=== PATIENT | male | born 1950 | race Caucasian/White ===

== ENCOUNTER 2024-08-19 08:22 | Outpatient (CLI) | payer MEDICARE, SELFPAY ==
--- NOTE | ~2024-08-19 | XR_ITS ---
MODIFIED ESOPHAGRAM HISTORY: Dysphagia. TECHNIQUE: Modified barium esophagram was performed on 08/19/2024. I administered fluoroscopy and perf ormed the exam with speech pathologist. Patient was seated for lateral fluoroscopic imaging for blu stion of thin liquids, pudding, solids and quantified amounts, followed by thin liquids in uncontroll ed amounts. This was recorded on tape. A single fluoroscopic spot image was also recorded. The DAP fo r this procedure was 1.982 Gycm2. The amount of fluoroscopy time used during this procedure was 3.3 m inutes. FINDINGS: Oral stage: Adequate function. Pharyngeal stage: Laryngeal penetration which clears without aspiration. There are prominent bridging or nearly bridging anterior osteophytes at several levels visualized cervical spine suggestive of di ffuse idiopathic skeletal hyperostosis (DISH). At C3-C4 the anterior osteophytes appear to mechanical ly interfere with full epiglottic inversion. Cervical/esophageal stage: Adequate function. IMPRESSION: Pharyngeal dysphagia with mechanical interruption of focal hepatic inversion resulting fr om large anterior osteophytes at C3-C4. This appears to contribute to some laryngeal penetration whic h clears without aspiration. Please correlate with speech pathologist findings and specific feeding recommendations. Reviewed, dictated and finalized at location A. IMPRESSION: Pharyngeal dysphagia with mechanical interruption of focal hepatic inversion resulting from large anterior osteophytes at C3-C4. This appears to c ontribute to some laryngeal penetration which clears without aspiration. Pleas e correlate with speech pathologist findings and specific feeding recommendatio ns.
--- OUTSIDE RECORDS SUMMARY | 2024-08-19 08:45 | XMS_ITS | CONTINUITY OF CARE DOCUMENT ---
Author Name emely han Address Unknown Organization [facility] [address] Address [address] [place] [address] Phone [phone] Care Team Providers Care Halver Machine Operator Name Role Phone Nitesh MCKENZIE, Yanick Unavailable LEN MCKENZIE, DANIEL Unavailable [phone] LEN MCKENZIE, DANIEL Unavailable [phone] INSURANCE PROVIDERS Payer name Policy type / Coverage type [employer] red republican ID AARP MEDICARE ADVANTAGE HMO-POS HMO [id number]
--- OUTSIDE RECORDS SUMMARY | 2024-08-19 08:45 | XMS_ITS | Encounter Summary ---
Author Organization [facility] Address [address] [place] [address] Care Team Providers Care Buccaro Name Role Phone Nishant Lerma MD Primary Care Provider [phone] Encounter Details Date Type Department Care Team (Late st Contact Info) Description 03/15/2020 Lab Requisition [facility] [address] [place] [id number] [place] [address] Social History Tobacco Use Types Packs/Day Years Used Date Smoking Tobacco: Never Assessed Sex and Gender Information Value Date Recorded Sex Assigned at Not on file Gender Identity Not on file Sexual Orientation Not on file documented as of this encounter Plan of Treatment Not on file documented as of this encounter Procedures Procedure Name Priority Date/Time Associated Diagnosis Comments DERMATOPATHOLOGY Routine 03/14/2020 12:0 0 AM CDT documented in this encounter Results * DERMATOPATHOLOGY (03/14/2020 12:00 AM CDT) Case Report Dermatopathology Report Case: [id number] Authorizing Provider: Huseyin Mata MD Collected: 03/14/2020 12:00 AM Ordering Location: [facility] Received: 03/15/2020 12:17 PM Pathologist: Hubert Tavares MD Specimen: Skin, right lateral post lower neck 0 3:57 PM CDT DERMATOPATHOLOGY LABORATORY Final Diagnosis Specimen A. SKIN, right lateral post lower neck: BASAL CELL CARCINOMA, NODULAR TYPE (C44.41) NOT PRESENT AT SAMPLED MARGIN 0 3:57 PM CDT DERMATOPATHOLOGY LABORATORY Clinical History R/O BCC. Check margins. 0 3:57 PM CDT DERMATOPATHOLOGY LABORATORY Gross Description Specimen A: Received is one formalin filled container labeled with the patient's name and designated right lateral post lower neck. The specimen consists of a punch excision measuring [id number], bisected. Jar 0. 0 3:57 PM CDT DERMATOPATHOLOGY LABORATORY Microscopic Description Specimen A. SKIN, right lateral post lower neck: Within the dermis there are aggregates of basaloid cells with a high nuclear to cytoplasmic ratio and peripheral palisading. This lesion is not present at the sampled margin of the specimen. 0 3:57 PM CDT DERMATOPATHOLOGY LABORATORY Disclaimer An external and internal positive and negative controls are appropriate for the histochemical, immunohistochemical and immunofluorescence stain(s) in this case (if any), except where stated explicitly. The performance characteristics of the stain(s) cited in this report were developed and its performance characteristic determined by the Dermatopathology Laboratory at [facility], directed by Dr. Shanique Tavares. These tests need not be, and therefore are not, approved by the [place] Food and Drug Administration. The tests are used for clinical purposes. Billing Codes Specimen Charges Stain Charges 64569 1 0 3:57 PM CDT DERMATOPATHOLOGY LABORATORY Embedded Images 0 3:57 PM CDT DERMATOPATHOLOGY LABORATORY Pathology/Cytolog y TISSUE SPECIMEN FROM SKIN / Unknown 03/14/2020 03/15/2020 12:17 PM CDT Huseyin Mata MD LAB - PATHOLOGY/CYTO LOGY ORDERABLES DERMATOPATHOLOGY LABORATORY [facility] - Department of Dermatology [address], [address] [phone] documented in this encounter Visit Diagnoses Not on filedocumented in this encounter Care Teams Buccaro Relationship Specialty Start Date End Date Lerma, MD Nishant [address] [place] [address] PCP - General 03/14/08 documented as of this encounter
--- OUTSIDE RECORDS SUMMARY | 2024-08-19 08:45 | XMS_ITS | Data Portability ---
Author Organization [place] [facility], Main Office Address [address] [place] [address] Care Team Providers Care Director Fixed Income Name Role Phone ERVIN HUERTAS Primary Care Provider [phone] ERVIN HUERTAS Referring Provider [phone] KADEN BARRIENTOS Customer Services Coordinator VANDA PONCE Drafter Chief Design ELSY MARLOW Washing Machine Installer FERNANDO MELENDEZ Monkey Trainer Assessment Encounter Date Assessment Date Assessment LastModified by Organization Details LastModified Time 01/14/2024 01/14/2024 This note is dictated and transcribed by [employer]. Willower variances may occur. Despite proofreading, typographical errors may occur. Occasional wrong-word or '[id number]-[id number]' substitutions may have occurred due to the inherent limitations of voice recording. Read the chart carefully and recognize, using context, where substitutions have occurred. Not available 01/14/2024 09:49:02 02/04/2024 02/04/2024 07/03/2022: Urine alb <6.0 A1C 6.8 TSH/Lipids/CBC: WNL Gluc 116 11/27/2022: PSA 1.54 A1C 6.6 Gluc 118 LDL 87 05/20/2023: A1C 6.6 Gluc 138 09/30/2023: A1C 6.5 Gluc 123, Alb 4.5H 02/03/2024: A1C 6.7 Gluc 126 LDL 122 H/H 12.8/38.8 [email or web address] Not available 02/04/2024 10:12:26 04/07/2024 04/07/2024 This note is dictated and transcribed by [employer]. Willower variances may occur. Despite proofreading, typographical errors may occur. Occasional wrong-word or 'xqeph-l-apzi' substitutions may have occurred due to the inherent limitations of voice recording. Read the chart carefully and recognize, using context, where substitutions have occurred. Not available 04/13/2024 18:09:18 05/05/2024 05/05/2024 07/03/2022: Urine alb <6.0 A1C 6.8 TSH/Lipids/CBC: WNL Gluc 116 11/27/2022: PSA 1.54 A1C 6.6 Gluc 118 LDL 87 05/20/2023: A1C 6.6 Gluc 138 09/30/2023: A1C 6.5 Gluc 123, Alb 4.5H 02/03/2024: A1C 6.7 Gluc 126 LDL 122 H/H 12.8/38.8 04/20/2024: Gluc 110 A1C 7.4 [email or web address] Not available 05/05/2024 10:32:12 07/21/2024 07/21/2024 This note is dictated and transcribed by [employer]. Willower variances may occur. Despite proofreading, typographical errors may occur. Occasional wrong-word or 'jchej-p-niau' substitutions may have occurred due to the inherent limitations of voice recording. Read the chart carefully and recognize, using context, where substitutions have occurred. Not available 07/25/2024 09:02:42 Plan of Treatment Reminders Order Date Submit Date Provider Last Modified By Organization Details Last Modified Time Details Appointments Any 15 2024 09:00A Hubert guajardo MD Not available Not available Not available Establish ed Patient 15 2024 09:00A Hubert Melendez DPM Not available Not available Not available Lab PSA, total, serum or plasma 2023 024 [facility] (Lab), [address] [place], [address], 06/21/2024 12:53:15 glycohemo globin, total, blood [address] (Lab), [address] [place], [address], 05/05/2024 10:35:20 microalbu min, urine [address] (Lab), [address] [place], [address], 05/05/2024 10:35:21 lipid panel, serum [address] (Lab), [address] [place], [address], 05/05/2024 10:35:21 CBC w/ auto diff [address] (Lab), [address] [place], [address], 05/05/2024 10:35:21 CMP, serum or plasma [address] (Lab), [address] [place], [address], 05/05/2024 10:35:21 TSH, serum or plasma [address] (Lab), [address] [place], [address], 05/05/2024 10:35:22 glycohemo globin, total, blood [address] (Lab), [address] [place], [address], 08/09/2024 10:05:10 microalbu min, urine [address] (Lab), [address] [place], [address], 08/09/2024 10:05:11 lipid panel, serum [address] (Lab), [address] [place], [address], 08/09/2024 10:05:11 CBC w/ auto diff [address] (Lab), [address] [place], [address], 08/09/2024 10:05:11 CMP, serum or plasma [address] (Lab), [address] [place], [address], 08/09/2024 10:05:11 TSH, serum or plasma [address] (Lab), [address] [place], [address], 08/09/2024 10:05:11 Referral gastroent erologist referral - Please call patient to schedule. 2023 024 [email or web address] [facility], [address], [id number], [place], [address], 07/26/2024 09:32:20 cardiolog ist referral - Please call patient to schedule. 2023 024 [email or web address] Yanick Dowling, [address] [address], [place], [address], 07/26/2024 09:32:20 podiatris t referral 2023 024 [email or web address] Fernando Melendez DPM, [address] [facility], [address], [place], [address], 05/05/2024 17:34:35 gastroent erologist referral - Please call patient to schedule. 2023 024 [email or web address] Chiquita Barrientos MD, [address] [facility], [address], [place], [address], 03/09/2024 08:54:35 cardiolog ist referral 2023 024 [email or web address] Yanick Dowling, [address] [facility], [place], [address], 02/04/2024 16:12:46 podiatris t referral 2023 024 [email or web address] Fernando Melendez DPM, [address] [facility], [address], [place], [address], 02/04/2024 16:12:45 Procedures colonosco py screening (PROC) - Please call patient to schedule. 2023 024 [email or web address] [facility], [address], [address], [place], [address], 06/23/2024 12:03:21 colonosco py screening (PROC) - Please call patient to schedule. 2023 024 Yvrose Hawthorne MD, [address] [facility], [address], [place], [address], 05/05/2024 17:30:01 Surgeries None recorded. Imaging None recorded. Medication Orders None recorded. Patient TargetsNo targets recorded. Patient Instructions Encounter Date Encounter Id Patient Instructions Last Modified By Organization Details Last Modified Time 02/04/2024 [id number] diabetic eye exam* [email or web address] Not available 08/02/2024 08:45:38 05/05/2024 [id number] diabetic eye exam* [email or web address] Not available 05/05/2024 10:35:22 Reason for Referral Monkey Trainer Referral for Type 2 diabetes mellitus without complication Referring Physician: Ervin Huertas, Internal Medicine, Encounter Date: 02/04/2024 Student Counsellor Referral for Es sential hypertension Referring Physician: Ervin Huertas, Internal Medicine, Encounter Date: 02/04/2024 Customer Services Coordinator Referral for Dysphagia Please call patient to schedule. Referring Physician: Ervin Huertas Internal Medicine, Encounter Date: 02/04/2024 Monkey Trainer Referral for Type 2 diabetes mellitus without complication Referring Physician: Ervin Huertas Internal Medicine, Encounter Date: 05/05/2024 Student Counsellor Referral for Es sential hypertension Please call patient to schedule. Referring Physician: Ervin Huertas Internal Medicine, Encounter Date: 05/05/2024 Customer Services Coordinator Referral for Dysphagia Please call patient to schedule. Referring Physician: Ervin Huertas Internal Medicine, Encounter Date: 05/05/2024 Results Created Date Observation Date Name Description Value Unit Range Abnormal Flag Note LastModifiedBy Organization Detail LastModifiedTime 02/03/20 24 02/03/2024 CBC/C OMPLE TE BLD COUNT W/DIF F white blood cells 8.6 x10'3 /uL 4.2-10 .8 Not Available [facility] (Lab) [address] [place], [address], 02/03/2024 11:02:01 02/03/20 24 02/03/2024 CBC/C OMPLE TE BLD COUNT W/DIF F red blood cells 4.14 x10'6 /uL 4.10-5 .80 Not Available [facility] (Lab) [address] [place], [address], 02/03/2024 11:02:01 02/03/20 24 02/03/2024 CBC/C OMPLE TE BLD COUNT W/DIF F hemoglobin 12.8 g/dL 13.2-1 7.0 low Not Available [facility] (Lab) [address] [place], [address], 02/03/2024 11:02:01 02/03/20 24 02/03/2024 CBC/C OMPLE TE BLD COUNT W/DIF F hematocrit 38.8 % 39.3-5 0.0 low Not Available [facility] (Lab) [address] [place], [address], 02/03/2024 11:02:01 02/03/20 24 02/03/2024 CBC/C OMPLE TE BLD COUNT W/DIF F mean red cell volume 93.7 fL 80.0-9 7.0 Not Available [facility] (Lab) [address] [place], [address], 02/03/2024 11:02:01 02/03/20 24 02/03/2024 CBC/C OMPLE TE BLD COUNT W/DIF F mean red cell hemoglobin 30.9 pg 27.0-3 3.0 Not Available [facility] (Lab) [address] [place], [address], 02/03/2024 11:02:01 02/03/20 24 02/03/2024 CBC/C OMPLE TE BLD COUNT W/DIF F mean RBC HGB concentratio n 33.0 g/dL 31.0-3 6.0 Not Available [facility] (Lab) [address] [place], [address], 02/03/2024 11:02:01 02/03/20 24 02/03/2024 CBC/C OMPLE TE BLD COUNT W/DIF F red cell distribution width 13.2 % 11.8-1 5.5 Not Available [facility] (Lab) [address] [place], [address], 02/03/2024 11:02:01 02/03/20 24 02/03/2024 CBC/C OMPLE TE BLD COUNT W/DIF F platelets 269 x10'3 /uL 150-40 0 Not Available [facility] (Lab) [address] [place], [address], 02/03/2024 11:02:01 09/0402/03/2024 CBC/C OMPLE TE BLD COUNT W/DIF F mean platelet volume 11.1 fL 9.0-12 .4 Not Available [facility] (Lab) [address] [place], [address], 02/03/2024 11:02:01 02/03/20 24 02/03/2024 CBC/C OMPLE TE BLD COUNT W/DIF F neutrophils 57.6 % 39.0-7 2.0 Not Available [facility] (Lab) [address] [place], [address], 02/03/2024 11:02:01 02/03/2002/03/2024 CBC/C OMPLE TE BLD COUNT W/DIF F lymphocytes 33.2 % 16.0-4 7.0 Not Available [facility] (Lab) [address] [place], [address], 02/03/2024 11:02:01 02/03/20 24 02/03/2024 CBC/C OMPLE TE BLD COUNT W/DIF F monocytes 7.3 % 5.0-12 .0 Not Available [facility] (Lab) [address] [place], [address], 02/03/2024 11:02:01 02/03/20 24 02/03/2024 CBC/C OMPLE TE BLD COUNT W/DIF F eosinophils 1.0 % 1.0-7. 0 Not Available [facility] (Lab) [address] [place], [address], 02/03/2024 11:02:01 02/03/20 24 02/03/2024 CBC/C OMPLE TE BLD COUNT W/DIF F basophils 0.6 % 0.0-2. 0 Not Available [facility] (Lab) [address] [place], [address], 02/03/2024 11:02:01 02/03/20 24 02/03/2024 CBC/C OMPLE TE BLD COUNT W/DIF F immature granulocytes 0.3 % 0.00-0 .50 Not Available [facility] (Lab) [address] [place], [address], 02/03/2024 11:02:01 02/03/20 24 02/03/2024 CBC/C OMPLE TE BLD COUNT W/DIF F neutrophils, absolute count 4.96 x10'3 /uL 1.5-8. 0 Not Available [facility] (Lab) [address] [place], [address], 02/03/2024 11:02:01 02/03/20 24 02/03/2024 CBC/C OMPLE TE BLD COUNT W/DIF F lymphocytes, absolute count 2.86 x10'3 /uL 1.07-3 .43 Not Available [facility] (Lab) [address] [place], [address], 02/03/2024 11:02:01 02/03/20 24 02/03/2024 CBC/C OMPLE TE BLD COUNT W/DIF F monocytes, absolute count 0.63 x10'3 /uL 0.29-0 .99 Not Available [facility] (Lab) [address] [place], [address], 02/03/2024 11:02:01 02/03/20 24 02/03/2024 CBC/C OMPLE TE BLD COUNT W/DIF F eosinophils, absolute count 0.09 x10'3 /uL 0.02-0 .53 Not Available [facility] (Lab) [address] [place], [address], 02/03/2024 11:02:01 02/03/20 24 02/03/2024 CBC/C OMPLE TE BLD COUNT W/DIF F basophils, absolute count 0.05 x10'3 /uL 0.01-0 .08 Not Available [facility] (Lab) [address] [place], [address], 02/03/2024 11:02:01 02/03/20 24 02/03/2024 CBC/C OMPLE TE BLD COUNT W/DIF F immature granulocytes ,absolute 0.03 x10'3 /uL 0.00-0 .05 Not Available [facility] (Lab) [address] [place], [address], 02/03/2024 11:02:01 02/03/20 24 02/03/2024 CBC/C OMPLE TE BLD COUNT W/DIF F nucleated red blood cells 0.0 % -0 Not Available [facility] (Lab) [address] [place], [address], 02/03/2024 11:02:01 02/03/20 24 02/03/2024 CBC/C OMPLE TE BLD COUNT W/DIF F NRBC# 0.00 x10'3 /uL Not Available [facility] (Lab) [address] [place], [address], 02/03/2024 11:02:01 02/03/20 24 02/03/2024 LIPID PANEL cholesterol 198 mg/dL 140-19 9 NIH YAW NSUS RECOM MENDA TION FOR RADHA STERO L: ADULT CHILD LOW RISK: <200 <170 BORDE RLINE : <200- 239 ----- HIGH RISK: >240 >200 Not Available [facility] (Lab) [address] [place], [address], 02/03/2024 11:18:56 02/03/20 24 02/03/2024 LIPID PANEL triglyceride s 111 mg/dL 0-150 NIH YAW NSUS REPOR T RECOM MENDA TION FOR TRIGL YCERI SHRAVAN: ADULT CHILD LOW RISK: <150 ----- BODER LINE: 150-1 99 ----- HIGH RISK: >200 ----- Not Available [facility] (Lab) [address] [place], [address], 02/03/2024 11:18:56 02/03/20 24 02/03/2024 LIPID PANEL HDL cholesterol 54 mg/dL 40- Not Available [facility] (Lab) [address] [place], [address], 02/03/2024 11:18:56 02/03/20 24 02/03/2024 LIPID PANEL LDL cholesterol, calculated 122 mg/dL 0-130 NIH YAW NSUS REPOR T RECOM MENDA TIONS FOR LDL: ADULT CHILD LOW RISK <130 <110 (OPTI MAL LDL) <100 ----- BORDE RLINE : 130-1 59 ----- HIGH RISK: >160 >130 A TRIGL YCERI DE RESUL T >400 INVAL IDATE S THE CALCU LATIO N FOR LDL FRACT IONAT ION - THE LDL RESUL T WILL NOT BE REPOR ROCHELLE. Not Available [facility] (Lab) [address] [place], [address], 02/03/2024 11:18:56 02/03/20 24 02/03/2024 COMPR EHENS MANNY METAB OLIC PANEL sodium 136 mmol/ L 137-14 5 low Not Available [facility] (Lab) [address] [place], [address], 02/03/2024 11:19:02 02/03/20 24 02/03/2024 COMPR EHENS MANNY METAB OLIC PANEL potassium 4.7 mmol/ L 3.5-5. 1 Not Available [facility] (Lab) [address] [place], [address], 02/03/2024 11:19:02 02/03/20 24 02/03/2024 COMPR EHENS MANNY METAB OLIC PANEL chloride 104 mmol/ L 98-107 Not Available [facility] (Lab) [address] [place], [address], 02/03/2024 11:19:02 02/03/20 24 02/03/2024 COMPR EHENS MANNY METAB OLIC PANEL carbon dioxide 29 mmol/ L 22-30 Not Available [facility] (Lab) [address] [place], [address], 02/03/2024 11:19:02 02/03/20 24 02/03/2024 COMPR EHENS MANNY METAB OLIC PANEL anion gap 7.7 mmol/ L 14-22 low Not Available [facility] (Lab) [address] [place], [address], 02/03/2024 11:19:02 02/03/20 24 02/03/2024 COMPR EHENS MANNY METAB OLIC PANEL glucose 126 mg/dL 70-99 high Not Available [facility] (Lab) [address] [place], [address], 02/03/2024 11:19:02 02/03/20 24 02/03/2024 COMPR EHENS MANNY METAB OLIC PANEL BUN 17 mg/dL 8-19 Not Available [facility] (Lab) [address] [place], [address], 02/03/2024 11:19:02 02/03/20 24 02/03/2024 COMPR EHENS MANNY METAB OLIC PANEL creatinine 0.93 mg/dL 0.66-1 .25 Not Available [facility] (Lab) [address] [place], [address], 02/03/2024 11:19:02 02/03/20 24 02/03/2024 COMPR EHENS MANNY METAB OLIC PANEL GFR >60 Refer ence Range : [place] ge GFR Healt hy Adult : >60 mL/mi n/1.7 3 m2 Chron ic Kidne y Disea se: 15-60 mL/mi n/1.7 3 m2 Kidne y Failu re: <15/m L/min /1.73 m2 www.n iddk. nih.g ov The MDRD study equat ion has not been valid ated in child maged <18 years of age; pregn ant women ; the elder ly >85 years of age; or in some racia l or ethni c subgr oups, such as Hispa nics. Outsi de the valid ated samanta eters , estim ated GFR is less accur ate, requi ring clini tsewart judgm ent on a case- by-ca se basis . Clini stewart inter preta tion for other races and ages must be made by the clini jesus. The MDRD study equat ion has not been valid ated for the evalu ation of serum creat inine relat ed to nutri chuyita l statu s or medic ation usage . For perso ns <18 years of age, a pedia tric GFR calcu lator is avail able on the [facility] websi te: https ://sharon w.kid cheri.o rg/pr ofess ional s/kdo qi/gf r_cal culat or Not Available [facility] (Lab) [address] [place], [address], 02/03/2024 11:19:02 02/03/20 24 02/03/2024 COMPR EHENS MANNY METAB OLIC PANEL alkaline phosphatase 60 U/L 38-126 Not Available [facility] (Lab) [address] [place], [address], 02/03/2024 11:19:02 02/03/20 24 02/03/2024 COMPR EHENS MANNY METAB OLIC PANEL alanine aminotransfe rase 14 U/L 0-50 Not Available [facility] (Lab) [address] [place], [address], 02/03/2024 11:19:02 02/03/20 24 02/03/2024 COMPR EHENS MANNY METAB OLIC PANEL aspartate aminotransfe rase 30 U/L 15-46 Not Available [facility] (Lab) [address] [place], [address], 02/03/2024 11:19:02 02/03/20 24 02/03/2024 COMPR EHENS MANNY METAB OLIC PANEL bilirubin, total 0.60 mg/dL 0.20-1 .30 Not Available [facility] (Lab) [address] [place], [address], 02/03/2024 11:19:02 02/03/20 24 02/03/2024 COMPR EHENS MANNY METAB OLIC PANEL calcium 8.8 mg/dL 8.4-10 .2 Not Available [facility] (Lab) [address] [place], [address], 02/03/2024 11:19:02 02/03/20 24 02/03/2024 COMPR EHENS MANNY METAB OLIC PANEL total protein 6.7 g/dL 6.3-8. 2 Not Available [facility] (Lab) [address] [place], [address], 02/03/2024 11:19:02 02/03/20 24 02/03/2024 COMPR EHENS MANNY METAB OLIC PANEL albumin 4.0 g/dL 3.0-4. 4 Not Available [facility] (Lab) [address] [place], [address], 02/03/2024 11:19:02 02/03/20 24 02/03/2024 COMPR EHENS MANNY METAB OLIC PANEL globulin 2.7 g/dL 2.6-4. 2 Not Available [facility] (Lab) [address] [place], [address], 02/03/2024 11:19:02 02/03/20 24 02/03/2024 COMPR EHENS MANNY METAB OLIC PANEL A/G ratio 1.5 ratio 1.0-2. 0 Not Available [facility] (Lab) [address] [place], [address], 02/03/2024 11:19:02 02/03/20 24 02/03/2024 HEMOG LOBIN A1C HA1C 6.7 % 4.0-6. 0 high Diabe jayant Scree layton Crite kody: <5.7% Consi stent with absen ce of diabe jayant 5.7-6 .4% Consi stent with incre ased risk for diabe jayant (pred iabet es) >OR=6 .5% Consi stent with diabe jayant REFER ENCE: Diabe jayant Care 2016, 39(Chawla ppl.1 ):s13 -s22 Not Available [facility] (Lab) [address] [place], [address], 02/03/2024 11:47:19 02/03/20 24 02/03/2024 TSH W/REF ANTONY FT4 TSH with reflex free T4 2.010 uIU/m L 0.465- 4.680 Not Available [facility] (Lab) [address] [place], [address], 02/03/2024 12:10:37 02/03/20 24 02/03/2024 MICRO ALBUM IN RANDO M URINE microalbumin , urine 14.8 mg/L 0.0-16 .6 Not Available [facility] (Lab) [address] [place], [address], 02/03/2024 12:59:41 Result Notes None recorded. Problems Name Problem SNOMED Code Status Onset Date Resolution Date Notes Provider Name and Address Organization Details Recorded Time Diabetes mellitus without complicati on 893980736 Active Not Available [facility] 3 11:38:25 Hallux valgus 300765841 Active 2017 Not Available [facility] 3 11:38:25 Nocturia 663013588 Active Not Available [facility] 3 11:38:25 Impacted cerumen 77685184 Active Not Available [facility] 3 11:38:25 Tremor 62344452 Active Not Available [facility] 3 11:38:25 Wax in ear canal 092059349 Active Not Available [facility] 3 11:38:25 Paresthesi a of hand 617041712 Active Not Available [facility] 3 11:38:25 Type 2 diabetes mellitus without complicati on 354872515 Active 2019 Not Available [facility] 3 11:38:25 Macular retinal edema 75567518 Active 2016 Not Available [facility] 3 11:38:26 Osteoarthr itis 354347631 Active 2016 Not Available [facility] 3 11:38:26 Porokerato sis 391106103 Active 2021 Not Available [facility] 3 11:38:26 Dizziness 284521521 Active 2016 Not Available [facility] 3 11:38:26 Nausea 316293291 Active 2021 Not Available [facility] 3 11:38:26 Upper respirator y infection 29968663 Active Not Available [facility] 3 11:38:26 Tinea pedis 7034705 Active 2019 Not Available [facility] 3 11:38:26 Rhinitis 53939698 Active 2016 Not Available [facility] 3 11:38:26 Diabetes mellitus 52896441 Active Not Available [facility] 3 11:38:26 Onychomyco sis of toenails 723484220 Active 2022 Not Available [facility] 3 11:38:26 Conifer of toe 69525827 Active 2022 Not Available [facility] 3 11:38:26 Pain in toe 350233178 Active 2022 Not Available [facility] 3 11:38:25 Hyperlipid emia 45568150 Active 2022 Not Available [facility] 3 11:38:26 Dysphagia 76393278 Active 2022 Not Available [facility] 3 11:38:26 Tinnitus of right ear 4362683468120 Active 2022 Not Available [facility] 3 11:38:26 Essential hypertensi on 55656247 Active 2022 Not Available [facility] 3 11:38:26 Primary erectile dysfunctio n 990572385 Active 2022 Not Available [facility] 3 11:38:26 Dystrophia unguium 58370840 Active 2022 Not Available [facility] 3 11:38:26 Foot callus 420292059 Active 2022 Not Available [facility] 3 11:38:25 Ingrowing toenail 190808889 Active 2023 Fernando Melendez DPM [address], [address], [place], [address] , [facility] 4 10:24:54 COVID-19 299831156 Active 2023 Geri Garland MA [facility], [facility] 4 11:43:54 Anemia 727779112 Active 2023 Ervin patrick MD [address], [address], [place], [address] , [facility] 4 10:12:17 Skin lesion 06023662 Active 2023 Ervin patrick MD [address], [address], [place], [address] , [facility] 4 10:54:12 Nicotine dependence 10513566 Active 2023 Ervin patrick MD [address], [address], [place], [address] , [facility] 4 10:36:46 Problem Notes None recorded. Procedures Surgical History Date Name Laterality Status Provider Name and Address Organization Details Recorded Time 07/21/19 25 Nail Debridement completed Fernando Melendez DPM [address], [address], [place], [address], [facility] 07/25/2024 09:03:21 07/21/19 25 Callus Debridement, One completed Fernando Melendez DPM [address], [address], [place], [address], [facility] 07/25/2024 09:03:15 11/07/20 24 Nail Debridement completed Fernando Melendez DPM [address], [address], [place], [address], [facility] 04/13/2024 18:08:59 04/07/20 24 Callus Debridement, One completed Fernando Melendez DPM [address], [address], [place], [address], [facility] 04/13/2024 18:09:03 01/14/20 24 Nail Debridement completed Fernando Melendez DPM [address], [address], [place], [address], [facility] 01/14/2024 09:48:43 01/14/20 24 Callus Debridement, One completed Fernando Melendez DPM [address], [address], [place], [address], [facility] 01/14/2024 09:48:48 10/22/19 24 Medicare Wellness CPT Code, subsequent completed Adán King LPN [facility] 10/22/2023 08:18:22 10/22/19 24 Advanced Care Planning completed Adán King LPN [place] [facility] 10/22/2023 11:47:19 09/17/19 24 Nail Debridement completed Fernando Melendez DPM [address], [address], [place], [address], [facility] 09/17/2023 10:00:39 06/18/19 24 Nail Debridement completed Fernando Melendez DPM [address], [address], [place], [address], [facility] 06/18/2023 10:24:40 06/18/19 24 Callus Debridement, One completed Fernando Melendez DPM [address], [address], [place], [address], [facility] 06/18/2023 10:24:32 03/19/20 23 Nail Debridement completed Fernando Melendez DPM [address], [address], [place], [address], [facility] [employer] [facility] [employer] [facility] 03/19/2023 12:28:15 03/19/20 23 Callus Debridement, One completed Fernando Melendez DPM [address], [address], [place], [address], [facility] [employer] [facility] [employer] [facility] 03/19/2023 10:29:05 11/14/19 23 Nail Debridement completed Fernando Melendez DPM [address], [address], [place], [address], [facility] [employer] [facility] [employer] [facility] 11/13/2022 10:06:06 08/29/19 23 Nail Debridement completed Fernando Melendez DPM [address], [address], [place], [address], [employer] [facility] [employer] [facility] 08/28/2022 10:09:12 08/29/19 23 Callus Debridement 2-4 completed Fernando Melendez DPM [address], [address], [place], [address], [employer] [facility] [employer] [facility] 08/28/2022 10:08:59 removal of mole of skin by excision completed Not Available [facility] 07/30/2022 04:44:13 Back Surgery completed Not Available [facility] 07/30/2022 04:44:13 Knee Surgery completed Not Available [facility] 07/30/2022 04:44:13 Gallbladder Surgery completed Not Available [facility] 07/30/2022 04:44:13 Cancer Surgery completed Not Available [facility] 07/30/2022 04:44:13 excision of lesion of skin completed Not Available [facility] 07/30/2022 04:44:13 Imaging Results None recorded. Procedure Notes None recorded. Medical Equipment None Reported. Allergies No known drug allergies Medications Name Sig Start Date Stop Date Status Note LastModified by Organization Details LastModified Time metformin 500 mg tablet TAKE 1 TABLET BY MOUTH DAILY IN THE MORNING AND 2 TABLETS IN THE EVENING 2024 active Not Available Not Available Not Avai lable Zyrtec-D 5 mg-120 mg tablet,exte nded release 03/24 completed Not Available Not Available Not Available ammonium lactate 12 % lotion apply to both feet twice daily active Not Available Not Available No t Available sildenafil 50 mg tablet TAKE 1 TAB 20 MINS PRIOR TO SEX NEEDED TWICE A WEEK. GO TO ER IF ERECTION LASTS LONGER THAN 2 HRS active Not Available Not Available No t Available azithromyci n 250 mg tablet Take by oral route.2ta bs first day then 1 daily 12/22 completed Not Available Not Available Not Available pravastatin 40 mg tablet TAKE 1 TABLET BY MOUTH EVERY DAY 2024 active Not Available Not Available Not Avai lable acetazolami de ER 500 mg capsule,ext ended release TK 1 C PO BID active Not Available Not Available No t Available ofloxacin 0.3 % eye drops INSTILL 1 GTT INTO THE LEFT EYE QID FOR 7 DAYS active Not Available Not Available No t Available benzonatate 200 mg capsule 07/25 completed Not Available Not Available Not Available clarithromy speedy 500 mg tablet 07/25 completed Not Available Not Available Not Available griseofulvi n microsize 500 mg tablet TK 1 T PO BID WF FOR 8 WEEKS active Not Available Not Available No t Available ondansetron HCl 4 mg tablet TAKE 1 TABLET BY MOUTH TWICE DAILY NEEDED 12/04 completed Not Available Not Available Not Available peg-electro lyte solution 420 gram oral solution 06/30 completed Not Available Not Available Not Available Promethazin e VC-Codeine 6.25 mg-5 mg-10 mg/5 mL oral syrup 07/25 completed Not Available Not Available Not Available prednisolon e acetate 1 % eye drops,suspe nsion INSTILL 1 DROP INTO LEFT EYE BID. active Not Available Not Available No t Available hydrocortis one-acetic acid 1 %-2 % ear drops INSTILL 3 GTS INTO AFFECTED EARSS 2 TIMES A DAY active Not Available Not Available No t Available ciprofloxac in 0.3 % eye drops 12/16 completed Not Available Not Available Not Available pantoprazol e 40 mg tablet,nava yed release TAKE 1 TABLET BY MOUTH EVERY MORNING FOR 8 WEEKS active Not Available Not Available No t Available diclofenac 0.1 % eye drops 12/22 completed Not Available Not Available Not Available indomethaci n 50 mg capsule TAKE 1 CAPSULE BY MOUTH THREE TIMES A DAY NEEDED 2024 active Not Available Not Available Not Avai lable hydrocortis one 2.5 % topical cream JOESPH TO GROIN RASH QD active Not Available Not Available No t Available montelukast 10 mg tablet Take 1 tablet every day by oral route. active Not Available Not Available No t Available pravastatin 20 mg tablet Take 1 tablet every day by oral route for 90 days. 04/20 completed Not Available Not Available Not Available lisinopril 5 mg tablet TAKE 1 TABLET BY MOUTH EVERY DAY active Not Available Not Available No t Available methylpredn isolone 4 mg tablets in a dose pack 03/24 completed Not Available Not Available Not Available ketoconazol e 2 % topical cream APPLY 1 APPLICATI ON ONTO THE AFFECTED TOENAIL AREA(S) ON THE ONCE DAILY active Not Available Not Available No t Available fluticasone propionate 50 mcg/actuati on nasal spray,suspe nsion 2 sprays each nostril at supper 03/24 completed Not Available Not Available Not Available griseofulvi n ultramicros ize 250 mg tablet 07/25 completed Not Available Not Available Not Available OneTouch UltraSoft Lancets test sugars twice a day 06/18 completed Not Available Not Available Not Available metformin 02/15 completed Not Available Not Available Not Available Combigan 0.2 %-0.5 % eye drops INSTILL 1 DROP INTO LEFT EYE BID UTD active Not Available Not Available No t Available gatifloxaci n 0.5 % eye drops active Not Available Not Available Not Available OneTouch Verio test strips Take 1 strip twice a day by miscell. route. 06/18 completed Not Available Not Available Not Available Virtussin AC 10 mg-100 mg/5 mL oral liquid TK 10 ML PO TID 12/22 completed Not Available Not Available Not Available OneTouch Verio IQ Meter USE UTD 06/18 completed Not Available Not Available Not Available Fluvirin 8051-6087 45 mcg (15 mcg x 3)/0.5 mL intramuscul ar suspension INJECT 0.5 ML INTRAMUSC ULARLY DIRECTED. 12/22 completed Not Available Not Available Not Available Fluvirin 45 mcg (15 mcg x 3)/0.5 mL intramuscul ar suspension ADM 0.5ML IM UTD 12/22 completed Not Available Not Available Not Available Shingrix (PF) 50 mcg/0.5 mL intramuscul ar suspension, kit 01/12 completed Not Available Not Available Not Available Fluzone High-Dose (PF) 180 mcg/0.5 mL intramuscul ar syringe PHARMACIS T ADMINISTE RED IMMUNIZAT ION ADMINISTE RED AT TIME OF DISPENSIN G 04/20 completed Not Available Not Available Not Available Fluzone High-Dose Quad (PF) 240 mcg/0.7 mL IM syringe PHARMACY ADMINISTE RED 05/09 completed Not Available Not Available Not Available Paxlovid 300 mg (150 mg x 2)-100 mg tablets in a dose pack TAKE 3 TABLETS BY MOUTH TWICE A DAY DIRECTED ON PACKAGE INSTRUCTI ONS FOR 5 DAYS 02/03 completed Not Available Not Available Not Available Vitals Date Recorded Body height Heart rate Body mass index (BMI) Body weight Systolic blood pressure Diastolic blood pressure Provider Name and Address Organization Details Last Updated DateTime 4 177.8 cm 56 /min 29.4 kg/m2 87808.4 4 g 146 mm[Hg] 77 mm[Hg] Shanna Meier [place] [employer] 4 09:21:10 Date Recorded Body height Body mass index (BMI) Body weight Body temperature Heart rate Oxygen saturation Oxygen saturation in Arterial blood by Pulse oximetry Systolic blood pressure Diastolic blood pressure Provider Name and Address Organization Details Last Updated DateTime 4 177.8 cm 30.4 kg/m2 42525.5 8 g 97.9 [degF] 70 /min 98 % 98 % 126 mm[Hg] 74 mm[Hg] Joyce Fleming MA [place] [employer] 4 09:52:57 Date Recorded Body height Body mass index (BMI) Body weight Heart rate Respiratory rate Oxygen saturation Oxygen saturation in Arterial blood by Pulse oximetry Systolic blood pressure Diastolic blood pressure Provider Name and Address Organization Details Last Updated DateTime 4 177.8 cm 30.4 kg/m2 86273.5 8 g 67 /min 14 /min 99 % 99 % 132 mm[Hg] 76 mm[Hg] Che Richards [place] [employer] 4 09:51:08 Date Recorded Body height Body mass index (BMI) Body weight Body temperature Heart rate Respiratory rate Oxygen saturation Oxygen saturation in Arterial blood by Pulse oximetry Pain severity - 0-10 verbal numeric rating [Score] - Reported Systolic blood pressure Diastolic blood pressure Provider Name and Address Organization Details Last Updated DateTime 4 180.34 cm 30.8 kg/m2 329414. 91 g 98 [degF] 70 /min 16 /min 98 % 98 % 0 118 mm[Hg] 62 mm[Hg] Adán King LPN [facility] [employer] [facility] 4 09:52:06 Date Recorded Body height Body mass index (BMI) Body weight Respiratory rate Heart rate Body temperature Oxygen saturation Oxygen saturation in Arterial blood by Pulse oximetry Systolic blood pressure Diastolic blood pressure Provider Name and Address Organization Details Last Updated DateTime 5 180.34 cm 30.8 kg/m2 511847. 91 g 16 /min 60 /min 98 [degF] 96 % 96 % 131 mm[Hg] 63 mm[Hg] Natasha Osmani [place] [employer] [facility] [employer] [facility] 5 17:09:29 Social History Question Answer Notes LastModified by Organization Details LastModified Time Tobacco Smoking Status Never Smoker Not Available [facility] 07/30/2022 04:22:19 Do You Have An Advance Directive? No Information not available 10/22/2023 What Is Your Level Of Alcohol Consumption? Occasional Weekends Only MIGRATION.030 [id number] Information not available 07/30/2022 Do You Wear A Helmet When Biking? Yes MIGRATION.030 [id number] Information not available 07/30/2022 Are You Blind Or Do You Have Difficulty Seeing? No MIGRATION.030 [id number] Information not available 07/30/2022 What Is Your Level Of Caffeine Consumption? Occasional 1/2 Can Of Soda Per Day [email or web address] Information not available 10/22/2023 How Much Tobacco Do You Chew? 5+/day MIGRATION.030 885158 Information not available 07/30/2022 In The 14 Days Before Symptom Onset, Have You Had Close Contact With A Laboratory-confi rmed COVID-19 While That Case Was Ill? No MIGRATION.030 887239 Information not available 07/30/2022 In The 14 Days Before Symptom Onset, Have You Had Close Contact With A Person Who Is Under Investigation For COVID-19 While That Person Was Ill? No MIGRATION.030 822739 Information not available 07/30/2022 Are You Currently Employed? No Retired Information not available 10/22/2023 Are You Deaf Or Do You Have Serious Difficulty Hearing? No MIGRATION.0301 [id number] Information not available 07/30/2022 What Type Of Diet Are You Following? REGULAR MIGRATION.0301 [id number] Information not available 07/30/2022 Which Illicit Or Recreational Drugs Have You Used? None MIGRATION.0301 467353 Information not available 07/30/2022 Do You Or Have You Ever Used E-cigarettes Or Vape? Never Used Electronic Cigarettes MIGRATION.0301 [id number] Information not available 07/30/2022 What Is The Highest Grade Or Level Of School You Have Completed Or The Highest Degree You Have Received? 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 No MIGRATION.0301 534065 Information not available 07/30/2022 What Is The Fluoride Status Of Your Home? Fluoridated MIGRATION.0301 021709 Information not available 07/30/2022 Are There Any Guns Present In Your Home? No MIGRATION.0301 [id number] Information not available 07/30/2022 Do You Use Insect Repellent Routinely? Yes Information not available 10/22/2023 [facility] MIGRATION.0301 [id number] Information not available 07/30/2022 Presence Of Domestic Violence No [email or web address] Information not available 10/22/2023 Guns Present In The Home? No [email or web address] Information not available 10/22/2023 Are You Able To Care For Yourself? Yes [email or web address] Information not available 10/22/2023 Are You Blind Or Do Yo Have Difficulty Seeing? No [email or web address] Information not available 10/22/2023 Are You Deaf Or Do You Have Serious Difficulty Hearing? No [email or web address] Information not available 10/22/2023 General Stress Level? Low [email or web address] Information not available 10/22/2023 Live Alone Of With Others? With Others [email or web address] Information not available 10/22/2023 Do You Have A Medical Power Of Loading Machine Operator? No MIGRATION.0301 [id number] Information not available 07/30/2022 What Was The Date Of Your Most Recent Tobacco Screening? 10/22/2023 [email or web address] Information not available 10/22/2023 Have You Ever Been Counseled For Unhealthy Alcohol Use? No MIGRATION.0301 210418 Information not available 07/30/2022 Do You Have Any Pets? Yes MIGRATION.0301 078567 Information not available 07/30/2022 What Is Your Relationship Status? MIGRATION.0301 720443 Information not available 07/30/2022 Do You Use Your Seat Belt Or Car Seat Routinely? Yes MIGRATION.0301 387992 Information not available 07/30/2022 Do You Have Smoke And Carbon Monoxide Detectors In Your Home? Yes Dog, Cat [email or web address] Information not available 10/22/2023 Are You Passively Exposed To Smoke? No MIGRATION.0301 714114 Information not available 07/30/2022 Do You Or Have You Ever Used Smokeless Tobacco? Former Smokeless Tobacco User Tobacco Pouches QUIT 12/31/23 [email or web address] Information not available 02/04/2024 Are There Any Smokers In Your House? No MIGRATION.0301 672994 Information not available 07/30/2022 How Much Tobacco Do You Smoke? No MIGRATION.0301 [id number] Information not available 07/30/2022 What Types Of Sporting Activities Do You Participate In? Biking [email or web address] Information not available 10/22/2023 Do You Feel Stressed (tense, Restless, Nervous, Or Anxious, Or Unable To Sleep At Night)? [id number] MIGRATION.0301 163132 Information not available 07/30/2022 Do You Use Any Illicit Or Recreational Drugs? No MIGRATION.0301 875578 Information not available 07/30/2022 Has Tobacco Cessation Counseling Been Provided? No Information not available 10/22/2023 Have You Recently Traveled Abroad? No MIGRATION.0301 281639 Information not available 07/30/2022 Do You Have Any Dietary Restrictions? No MIGRATION.0301 131723 Information not available 07/30/2022 Do You Or Have You Ever Used Any Other Forms Of Tobacco Or Nicotine? Yes MIGRATION.0301 947610 Information not available 07/30/2022 How Many Days In The Past Year Have You Consumed 5 Or More Drinks? 0 [email or web address] Information not available 10/22/2023 Sex: Male Functional Status Question Answer Note LastModified by Organizat ion Details LastModified Time Do you have difficulty walking or climbing stairs? No MIGRATION.[id number] 6054 Information not available 07/30/2022 Do you have transportation difficulties? No MIGRATION.890483 6110 Information not available 07/30/2022 Are you able to walk? YESWOREST MIGRATION.947694 8823 Information not available 07/30/2022 Do you have difficulty doing errands alone? No MIGRATION.615880 8799 Information not available 07/30/2022 Are you able to care for yourself? Yes MIGRATION.649047 4036 Information not available 07/30/2022 Do you have difficulty dressing or bathing? No MIGRATION.039868 2373 Information not available 07/30/2022 What is your exercise level? Moderate walk/bik e MIGRATION.355706 1801 Information not available 07/30/2022 Mental Status Question Answer Note LastModified by Organizat ion Details LastModified Time Do you have difficulty concentrating, remembering or making decisions? No MIGRATION.[id number] 6 Information not available 07/30/2022 Family History Relationship Description Onset Age of this Age Resolved Age Notes LastModified by Organization Details LastModified Time Mother Malignant tumor of pancreas MIGRATION.196 [id number] Not available 07/30/2022 04:44:16 Medical History Condition Response NERVE DISEASE N BLINDNESS N RHEUMATIC FEVER N KIDNEY STONES N BLADDER PROBLEMS N MRSA N OTHER # 1 N POLIO N LUNG DISEASE/DISORDER N RADIATION / CHEMOTHERAPY N COPD N Other # 2 N BLOOD DISEASES N SURGERY N EAR OR HEARING PROBLEMS Y MUMPS N BOWEL PROBLEMS N DEPRESSION (INCLUDING POST ) N STROKE/TIA N ULCERS N BENIGN PROSTATIC HYPERPLASIA N MEASLES N MYOCARDIAL INFARCTION N OBESITY N GERD/NAUSEA N ANEURYSM N URINARY/BLADDER/KIDNEY PROBLEMS N CORONARY ARTERY DISEASE (CAD) N ADDICTION CONCERNS N ENDOMETRIOSIS N Impotence N USE OF BLOOD THINNERS N SKIN PROBLEMS N GASTROINTESTINAL DISORDER Y PERIPHERAL VASCULAR DISEASE N MUSCLE,JOINT OR BONE PROBLEMS N GASTROINTESTINAL BLEEDING N BLOOD CLOTS N ASTHMA N CATARACTS N ERECTILE DYSFUNCTION N VARICOSITIES N GI PROBLEMS N Low Testosterone N INFERTILITY N AIDS/HIV N CHEMOTHERAPY / RADIATION N LIVER DISEASE N MALE HYPOGONADISM N HYPERTENSION N ANXIETY DISORDER N BLOOD TRANSFUSION N ANEMIA/BLOOD DISORDER N CHRONIC EAR INFECTIONS N BRONCHITIS N TUBERCULOSIS N GLAUCOMA N FOOT PROBLEM N DIVERTICULITIS N SLEEP APNEA N CHICKENPOX N INFECTIOUS DISEASE N HEART ARRHYTHMIA N PROSTATE N INSOMNIA N HIGH CHOLESTEROL / HYPERLIPIDEMIA Y EYE PROBLEMS Y HYPERTHYROIDISM N NEUROLOGICAL PROBLEMS N CHRONIC PAIN SYNDROME N HYPOTHYROIDISM N CAROTID BLOCKAGE N CONSTIPATION N BACK / NECK PROBLEMS N BREAST PROBLEMS N DIALYSIS N ECZEMA N OSTEOPOROSIS N ARTHRITIS Y DIABETES, TYPE Y BAD TEETH N HEARTBURN / REFLUX N AUTISM SPECTRUM DISORDER (ASD) N HEPATITIS / LIVER DISEASE N GOUT N ALZHEIMER'S DISEASE N SLEEP DISORDER N Brain Problems N HERPES N DEMENTIA N HEADACHES/MIGRAINES N SEIZURES/EPILEPSY N VASCULAR DISEASE N PACEMAKER N Blood Disorder N DIZZINESS N HEART DISEASE/HEART PROBLEMS N KIDNEY DISEASE N MULTIPLE SCLEROSIS N CANCER: SPECIFY N ATRIAL FIBRILLATION N Gall Stones N PULMONARY EMBOLISM N AUTOIMMUNE DISEASE N Immunizations Vaccine Type Date Status Note Provider Nam e and Address Organization Details Recorded Time COVID-19, mRNA, LNP-S, PF, 30 mcg/0.3 mL dose, vicenta-sucrose 3 completed Nancy Duval RMA nury, [facility] 06/02/2024 15:40:39 Influenza, adjuvanted, quadrivalent, PF 3 completed Nancy Duval RMA nury, [facility] 06/02/2024 15:40:39 RSV, recombinant, protein subunit RSVpreF, adjuvant reconstituted, 0.5 mL, PF 3 completed Nancy Duval RMA nury, [facility] 06/02/2024 15:40:39 zoster recombinant 9 completed Nancy Duval RMA null, [facility] 06/02/2024 15:40:24 zoster recombinant 9 completed Nancy Duval RMA null, [facility] 06/02/2024 15:40:24 Influenza, adjuvanted, quadrivalent, PF 2 completed KELLEN Albright, [facility] 06/02/2024 15:40:24 COVID-19, mRNA, LNP-S, PF, 100 mcg/0.5mL dose or 50 mcg/0.25mL dose 1 [facility] 15:40:25 COVID-19, mRNA, LNP-S, PF, 100 mcg/0.5mL dose or 50 mcg/0.25mL dose 1 completed [facility] 15:40:25 COVID-19, mRNA, LNP-S, PF, vicenta-sucrose, 30 mcg/0.3 mL 3 completed [facility]24 15:40:39 Influenza, high-dose, trivalent, PF 4 completed [facility]24 15:40:39 Influenza, split virus, trivalent, preservative 0 completed [facility]24 15:40:39 COVID-19, mRNA, LNP-S, PF, vicenta-sucrose, 30 mcg/0.3 mL 4 completed NEREIDA AlbrightA null, [facility] 06/02/2024 15:41:01 COVID-19, mRNA, LNP-S, PF, 100 mcg/0.5mL dose or 50 mcg/0.25mL dose 2 completed NEREIDA AlbrightA null, [facility] 06/02/2024 15:40:25 SARS-COV-2 (COVID-19) vaccine, UNSPECIFIED 1 completed Nancy Duval RMA null, [facility] 06/02/2024 15:40:25 SARS-COV-2 (COVID-19) vaccine, UNSPECIFIED 1 completed Nancy Duval RMA null, [facility] 06/02/2024 15:40:25 Influenza, split virus, trivalent, preservative 0 completed Not Available [facility] 07/30/2022 05:07:13 Influenza, high-dose, trivalent, PF 9 completed Nancy Duval RMA null, [facility] 06/02/2024 15:40:25 zoster live 9 completed Nancy Duval RMA null, [facility] 06/02/2024 15:40:25 Influenza, high-dose, quadrivalent, PF 1 completed KELLEN Albright null, [facility] 06/02/2024 15:40:24 COVID-19, mRNA, LNP-S, PF, 100 mcg/0.5mL dose or 50 mcg/0.25mL dose 1 completed KELLEN Albright, [facility] 06/02/2024 15:40:25 influenza, unspecified formulation 7 completed Not Available [facility] 07/30/2022 05:07:13 Influenza, high-dose, trivalent, PF 8 completed Not Available [facility] 07/30/2022 05:07:13 Pneumococcal conjugate PCV 13 8 completed Nancy Duval RMA nury, [facility] 06/02/2024 15:40:25 Past Encounters Encounter ID Performer Location Encounter Start Date Encounter Closed Date Diagnosis/Indication Diagnosis SNOMED-CT Code Diagnosis ICD10 Code Diagnosis Note [id number] [facility] [address] [place] [address] 09/11/2020 00:00:00 09/19/2020 15:55:35 [id number] [facility] [address] [place] [address] 01/10/2021 00:00:00 01/10/2021 10:42:24 [id number] [facility] [address] [facility] [address] [place] [address] 01/24/2021 00:00:00 01/24/2021 14:47:38 [id number] [facility] [address] [place] [address] 06/20/2021 00:00:00 07/23/2021 10:23:00 [id number] [facility] [address] [place] [address] 11/07/2021 00:00:00 11/07/2021 10:49:38 [id number] [facility] Charisma Wilson [address] [place] [address] 01/27/2022 00:00:00 01/27/2022 16:17:42 [id number] [facility] [address] [facility] [address] [place] [address] 02/06/2022 00:00:00 02/06/2022 11:02:32 [id number] [facility] [address] [facility] [address] [place] [address] 07/10/2022 00:00:00 07/10/2022 11:18:07 [id number] Fernando Melendez DPM [facility] [place] [address] [facility], [address] [place] [address] 08/28/2022 09:34:50 08/28/2022 11:50:55 Diabetes mellitus 93662906 E11.9 Patient educated on neuropathy , diabetes, diabetic diet, and daily foot exams. Patient is to check feet daily for new wounds, blisters, redness to prevent infection and ulceration s to the feet. Patient will return to clinic in 3 months for diabetic foot workup. Onychomyco sis of toenails 034626091 B35.1 Nails 1 through 10 were debrided with sharp mechanical debridemen t without incident. Nails were debrided and greater than 50% length and thickness where needed.Rx ketoconazo le Conifer of toe 25053732 L84 bilateral 5th toesDebrid ed without incidentCo ntinue wide shoes.Offl oading to prevent wounds infectionF ollow-up in 3 months Pain in toe 487579275 M7 9.675 M79.674 5th toes bilaterall Scar above [id number] Fernando Melendez DPM [facility] [place] [address] [facility], [address] [place] [address] 11/13/2022 09:33:59 11/13/2022 10:11:38 Diabetes mellitus without complication 701434071 E11.9 Patient educated on neuropathy , diabetes, diabetic diet, and daily foot exams. Patient is to check feet daily for new wounds, blisters, redness to prevent infection and ulceration s to the feet. Patient will return to clinic in 3 months for diabetic foot workup. Onychomyco sis of toenails 875714132 B35.1 nails were debridedCo ntinue ketoconazo le as needed [id number] Ervin patrick MD [facility] Internal Med [facility] [address] [facility], [address] [place] [address] 12/04/2022 10:00:46 12/04/2022 10:33:56 Screening - NAD 421239889 Z13.9 C-scope: 04/09/18: Dr Barrientos, bx tubular adenoma, f/u in 5 years UTD on the yearly flu shotUTD PCV #13 06/17/17, UTD on #23 at [facility] 2019 as per his hxCan do TdaPUTD shingles vaccineUTD on COVID 19 vaccine 08/20/2020 , get boosters RTC in 4 monthswith labsER if worsehe did verbalize his understand ing of the above Type 2 tabitha betes mellitus without complication [id number] E11.9 On metformin 500mg one in am and 2 in pm More diet and exercise is neededDr Christina 01/24/2021 Get labsDr Vanda MCKENZIE 08/08/2021 Wet AMD, L eye, Eylea (afliberce pt) injection OS (L eye) done, rtc in 3 months Hyperlipidemia 35203369 E78.5 On pravastati n 40mg daily Get labsGoal is LDL less than 55Diet and exercise Dysphagia 15068314 R13.1 0 02/13/2020 : EGD, Antral gastritis Refer again to Dr Pretty protonix Tinnitus of right ear 48 35778409 108 H93.11 Seen by ENT 06/08/2020 Osteoarthritis 746973164 M19.90 Rarely uses the indomethac in and does well Essential hypertension 52876710 I10 On lisinopril 5mg dailyGet labsDoes well Primary er ectile dysfunction 707731313 N52.9 On Viagra 50 mg tablet 1 tablet 2 times a week as needed for 90 days [id number] Fernando Melendez DPM [facility] [facility] [address] [facility], [address] [place] [address] 03/19/2023 09:37:14 03/20/2023 11:28:22 Type 2 diabetes mellitus without complication [id number] E11.9 Patient educated on neuropathy , diabetes, diabetic diet, and daily foot exams. Patient is to check feet daily for new wounds, blisters, redness to prevent infection and ulceration s to the feet. Patient will return to clinic in 3 months for diabetic foot workup. Dystrophia unguium 86530 009 L60.3 Nails 1 through 10 were debrided with sharp mechanical debridemen t without incident. Nails were debrided and greater than 50% length and thickness where needed. Foot callus [id number] L8 4 medial 1st metatarsop halangeal jointDebri ded without incidentDi scussed options in detailPati ent elects to continue with conservati ve offloading Monitor for wounds daily if continues to be problemati c may require surgical interventi onRecommen d wide soft toe box style shoe gear [id number] Ervin patrick MD [facility] [address] [facility], [address] [place] [address] 05/21/2023 09:45:46 05/21/2023 10:14:36 Screening - NAD [id number] Z13.9 C-scope: 04/09/18: Dr Barrientos, bx tubular adenoma, f/u in 5 years UTD on the yearly flu shotUTD PCV #13 06/17/17, UTD on #23 at [facility] 2019 as per his hxCan do TdaPUTD shingles vaccineUTD on COVID 19 vaccine 08/20/2020 , get boostersCa n do RSV vaccine RTC in 4 monthswith labsER if worsehe did verbalize his understand ing of the above Type 2 tabitha betes mellitus without complication [id number] E11.9 On metformin 500mg one in am and 2 in pm More diet and exercise is neededDr Christina 01/24/2021 Get labsDr Vanda MCKENZIE 08/08/2021 Wet AMD, L eye, Eylea (afliberce pt) injection OS (L eye) done, rtc in 3 months Hyperlipidemia 16727591 E78.5 On pravastati n 40mg daily Get labsGoal is LDL less than 55Diet and exercise Dysphagia 49654808 R13.1 0 02/13/2020 : EGD, Antral gastritis0 02/04/2023: EGD: Dr Barrientos On protonix Tinnitus of right ear 48 33956851 108 H93.11 Seen by ENT 06/08/2020 Osteoarthritis 676180041 M19.90 Rarely uses the indomethac in and does well Essential hypertension 38164675 I10 On lisinopril 5mg dailyGet labsDoes well Primary er ectile dysfunction 844791979 N52.9 On Viagra 50 mg tablet 1 tablet 2 times a week as needed for 90 days [id number] Fernando Melendez DPM [facility] [place] [address], [address] [place] [address] 06/18/2023 09:37:53 06/29/2023 09:30:43 Type 2 diabetes mellitus without complication 730851525 E11.9 Patient educated on neuropathy , diabetes, diabetic diet, and daily foot exams. Patient is to check feet daily for new wounds, blisters, redness to prevent infection and ulceration s to the feet. Patient will return to clinic in 3 months for diabetic foot workup. Ingrowing toenail 499540 009 L60.0 right lateral cornercut out without incident noninfecte dwill continue to monitor continues to be problemati c will perform partial matrix Dystrophia unguium 21216 009 L60.3 Nails 1 through 10 were debrided with sharp mechanical debridemen t without incident. Nails were debrided and greater than 50% length and thickness where needed. Foot callus 225340131 L8 4 medial 1st metatarsop halangeal jointDebri ded without incidentDi scussed options in detailPati ent elects to continue with conservati ve offloading Monitor for wounds daily if continues to be problemati c may require surgical interventi onRecommen d wide soft toe box style shoe gear [id number] Fernando Melendez DPM [facility] [place] [address] [facility], [address] [place] [address] 09/17/2023 09:15:42 09/17/2023 11:16:48 Diabetes mellitus without complication [id number] E11.9 Patient educated on neuropathy , diabetes, diabetic diet, and daily foot exams. Patient is to check feet daily for new wounds, blisters, redness to prevent infection and ulceration s to the feet. Patient will return to clinic in 4 months for diabetic foot workup. Dystrophia unguium 12391 009 L60.3 Nails 1 through 10 were debrided with sharp mechanical debridemen t without incident. Nails were debrided and greater than 50% length and thickness where needed. Foot callus [id number] L8 4 medial 1st metatarsop halangeal jointrecom mend use of pumice stoneDiscu ssed options in detailPati ent elects to continue with conservati ve offloading Monitor for wounds daily if continues to be problemati c may require surgical interventi onRecommen d wide soft toe box style shoe gear [id number] Ervin patrick MD [facility] [address] [facility], [address] [place] [address] 10/22/2023 09:38:05 10/22/2023 10:17:16 Screening - NAD [id number] Z13.9 C-scope: 04/09/18: Dr Barrientos, bx tubular adenoma, f/u in 5 years UTD on yearly flu shotUTD PCV #13 06/17/17, [facility] as per his hxCan do TdaPShingl es vaccine 06/24/18 09/01/18UTD on COVID 19 vaccine 07/19/20 , 08/20/2020 , get boostersRS V vaccine 04/05/23 RTC in 4 monthswith labsER if worsehe did verbalize his understand ing of the above Type 2 tabitha betes mellitus without complication 834549410 E11.9 On metformin 500mg one in am and 2 in pm More diet and exercise is neededDr Garycher 01/24/2021 Get labsDr Vanda MCKENZIE 08/08/2021 Wet AMD, L eye, Eylea (afliberce pt) injection OS (L eye) done, rtc in 3 monthsDr Melendez 09/17/2023 , next 01/14/2024 apt Hyperlipidemia 66733672 E78.5 On pravastati n 40mg daily Get labsGoal is LDL less than 55Diet and exercise Dysphagia 39650019 R13.1 0 02/13/2020 : EGD, Antral gastritis0 02/04/2023: EGD: Dr Barrientos On protonix Tinnitus of right ear 48 00352524 108 H93.11 Seen by ENT 06/08/2020 Osteoarthritis 354973664 M19.90 Rarely uses the indomethac in and does well, renewed today as he has his prescripti on from 10/2019 and he wants to keep it at home to use as needed Essential hypertension 74266413 I10 On lisinopril 5mg dailyGet labsDoes well Primary er ectile dysfunction 677127612 N52.9 On Viagra 50 mg tablet 1 tablet 2 times a week as needed for 90 days Adult heal th examination 818560413 Z00.00 Screening for disorder 444094771 Z13.9 [id number] Fernando Melendez DPM [facility] [address], [facility] [address] [place] [address] 01/14/2024 09:09:54 01/14/2024 15:28:22 Diabetes mellitus without complication 464167666 E11.9 Patient educated on neuropathy , diabetes, diabetic diet, and daily foot exams. Patient is to check feet daily for new wounds, blisters, redness to prevent infection and ulceration s to the feet. Patient will return to clinic in 4 months for diabetic foot workup. Dystrophia unguium 56032 009 L60.3 Nails 1 through 10 were debrided with sharp mechanical debridemen t without incident. Nails were debrided and greater than 50% length and thickness where needed. Foot callus 826674869 L8 4 medial 1st metatarsop halangeal jointrecom mend use of pumice stoneDiscu ssed options in detailPati ent elects to continue with conservati ve offloading Monitor for wounds daily if continues to be problemati c may require surgical interventi onRecommen d wide soft toe box style shoe gear [id number] Ervin patrick MD [facility] [address] [place] [address] 02/04/2024 09:43:43 02/04/2024 10:40:22 Screening - NAD [id number] Z13.9 C-scope: 04/09/18: Dr Barrientos, bx tubular adenoma, f/u in 5 years UTD on yearly flu shotUTD PCV #13 06/17/17, UTD on #23 at [facility] 2019 as per his hxCan do TdaPShingl es vaccine 06/24/18 09/01/18UTD on COVID 19 vaccine 07/19/20 , 08/20/2020 , get boostersRS V vaccine 04/05/23 RTC in 3 monthswith labsER if worsehe did verbalize his understand ing of the above Type 2 tabitha betes mellitus without complication 365818923 E11.9 On metformin 500mg one in am and 2 in pm More diet and exercise is neededDr Christina 01/24/2021 Get labsDr Vanda MCKENZIE 08/08/2021 , 09/10/2023 Wet AMD, L eye, Eylea (afliberce pt) injection OS (L eye) done, rtc in 3 monthsDr Carie 09/17/2023 , next 01/14/2024 apt Hyperlipidemia 01754384 E78.5 On pravastati n 40mg daily Get labsGoal is LDL less than 55Diet and exercise Dysphagia 03394711 R13.1 0 02/13/2020 : EGD, Antral gastritis0 02/04/2023: EGD: Dr Barrientos On protonix Tinnitus of right ear 48 52100006 108 H93.11 Seen by ENT 06/08/2020 Osteoarthritis 271435918 M19.90 Rarely uses the indomethac in and does well, and he wants to keep it at home to use as needed Essential hypertension 88962811 I10 On lisinopril 5mg dailyGet labsDoes well Primary er ectile dysfunction 944825914 N52.9 On Viagra 50 mg tablet 1 tablet 2 times a week as needed for 90 days Screening for malignant neoplasm of colon 330446466 Z12.11 Anemia 404866118 D64.9 More iron in diet, get labs Skin lesion 01805509 L98 .[address] Elsy Marlow TILE DESIGNER 01/06/2024 , next in one year [id number] Fernando Melendez DPM [facility] [place] [address] [facility], [address] [place] [address] 04/07/2024 09:45:54 05/27/2024 11:32:35 Diabetes mellitus 59059774 E11.9 Patient educated on neuropathy , diabetes, diabetic diet, and daily foot exams. Patient is to check feet daily for new wounds, blisters, redness to prevent infection and ulceration s to the feet. Patient will return to clinic in 3 months for diabetic foot workup. Diabetes m ellitus without complication 130627586 E11.9 Patient educated on neuropathy , diabetes, diabetic diet, and daily foot exams. Patient is to check feet daily for new wounds, blisters, redness to prevent infection and ulceration s to the feet. Patient will return to clinic in 4 months for diabetic foot workup. Dystrophia unguium 30449 009 L60.3 Nails 1 through 10 were debrided with sharp mechanical debridemen t without incident. Nails were debrided and greater than 50% length and thickness where needed. [id number] Ervin patrick MD [facility] [address] [facility], [address] [place] [address] 05/05/2024 09:35:42 05/05/2024 10:37:19 Screening - NAD [id number] Z13.9 C-scope: 04/09/18: Dr Barrientos, bx tubular adenoma, f/u in 5 years UTD on yearly flu shotUTD PCV #13 06/17/17, UTD on #23 at [facility] 2019 as per his hxCan do TdaPShingl es vaccine 06/24/18 09/01/18UTD on COVID 19 vaccine 07/19/20 , 08/20/2020 , get boostersRS V vaccine 04/05/23 RTC in 3 monthswith labsER if worsehe did verbalize his understand ing of the above Type 2 tabitha betes mellitus without complication 622330754 E11.9 On metformin 500mg one in am and 2 in pm More diet and exercise is neededDr Vasquez 01/24/2021 Get labsDr Vanda MCKENZIE 08/08/2021 , 09/10/2023 Wet AMD, L eye, Eylea (afliberce pt) injection OS (L eye) done, rtc in 3 monthsDr Melendez 09/17/2023 , next 01/14/2024 apt Hyperlipidemia 42955669 E78.5 On pravastati n 40mg daily Get labsGoal is LDL less than 55Diet and exercise Dysphagia 98321810 R13.1 0 02/13/2020 : EGD, Antral gastritis0 02/04/2023: EGD: Dr Barrientos On protonix Tinnitus of right ear 48 55327691 108 H93.11 Seen by ENT 06/08/2020 Osteoarthritis 618143414 M19.90 Rarely uses the indomethac in and does well, and he wants to keep it at home to use as needed Essential hypertension 15608838 I10 On lisinopril 5mg dailyGet labsDoes well Primary er ectile dysfunction 622510958 N52.9 On Viagra 50 mg tablet 1 tablet 2 times a week as needed for 90 days Screening for malignant neoplasm of colon 272291121 Z12.11 Anemia 194713980 D64.9 More iron in diet, get labs Skin lesion 20424150 L98 .9 Dermatolog ist Elsy Marlow TILE DESIGNER 01/06/2024 , next in one year Screening for malignant neoplasm of prostate 242687706 Z12.5 Nicotine dependence 5629 4008 F17.200 Used to chew tobacco and has quit since 3 months now, does well, has noted some weight gain [id number] Fernando Melendez DPM [facility] [address] [place] [address] 07/21/2024 16:12:06 07/25/2024 15:57:01 Diabetes mellitus 12597109 E11.9 Patient educated on neuropathy , diabetes, diabetic diet, and daily foot exams. Patient is to check feet daily for new wounds, blisters, redness to prevent infection and ulceration s to the feet. Patient will return to clinic in 3 months for diabetic foot workup. Diabetes m ellitus without complication 250292491 E11.9 Patient educated on neuropathy , diabetes, diabetic diet, and daily foot exams. Patient is to check feet daily for new wounds, blisters, redness to prevent infection and ulceration s to the feet. Patient will return to clinic in 4 months for diabetic foot workup. Dystrophia unguium 99571 009 L60.3 Nails 1 through 10 were debrided with sharp mechanical debridemen t without incident. Nails were debrided and greater than 50% length and thickness where needed. Health Concerns Section Related Observation LastModified by Organization Detai ls LastModified Time None Recorded Concern Status LastModified by Organization Details LastModified Time None Recorded Advance Directives Directive N: Payers Encounter Date Sequence Insurance Name Policy Number Policy Linn Covered Member ID Linn Member ID Guarantor Name 01/14/2024 1 [facility] (MEDICARE REPLACEMENT/A DVANTAGE - HMO) [id number] Demetrio Bryan Gonterman [id number] Demetrio G Gonterman 02/04/2024 1 [facility] (MEDICARE REPLACEMENT/A DVANTAGE - HMO) [id number] Demetrio G Gonterman [id number] Demetrio G Gonterman 04/07/2024 1 [facility] (MEDICARE REPLACEMENT/A DVANTAGE - HMO) [id number] Demetrio G Gonterman [id number] Demetrio G Gonterman 05/05/2024 1 [facility] (MEDICARE REPLACEMENT/A DVANTAGE - HMO) [id number] Demetrio G Gonterman [id number] Demetrio G Gonterman 07/21/2024 1 [facility] (MEDICARE REPLACEMENT/A DVANTAGE - HMO) [id number] Demetrio G Gonterman [id number] Demetrio G Gonterman Notes Date Note Type Note Provider Name and Address Organization Details Recorded Time 01/14/2024 text/html . Patient is a 73-year-old male diabetic returns for diabetic foot care he denies any new complaints. Patient denies any corns to the toes or painful calluses. Patient denies any open wounds or infection. Patient denies any intermittent claudication walking rest pain. Patient denies any other complaints. Fernando Melendez DPM [address] [place] [address], [address], [address], [place] - [facility] 01/14/2024 09:49:16 02/04/2024 text/html Here to [place] seals[place]av[place] with his wifePast Hx:DMIIReviewed his social family and surgical historyHere to discuss above and also obtain labsOV 09/21/17:Here for his routine aptHe states that he is doing well at this time OV 12/16/17:Here for his routine aptHe states that he is doing well at this time, he states that he may have passed a kidney stone and is doing well at this timeNo pain, no blood in urineIs to see an eye MD for L and R eyes, L eye has had the cataract and laser surgeryOV 03/24/18:Here for his 3 months aptHe feels that he is doing well OV 06/30/18:Here to discuss his labsHe feels that he is doing well he does state that he does not take his medications 'on time' he has not taken his pravastatin as he shouldOV 01/12/19:Here for his routine aptHe states that he is doing well, went on a long road trip and feels that he did not eat healthyNo recent labs since 11/18/18 OV 04/20/19:Here for his routine aptHe is doing wellHe did do the labsOV 08/17/2019:Here for his routine aptHe feels well todayHe did do the labs on 08/11/2019 and is here to review these OV 12/28/2019:Here for his routine aptHe feels wellHe does have some tinnitus in the R ear, no ear ache of d/c from the ear, He does feel it when he scratches itHe is also having some dysphagia for solids, no weight loss, no abd pain, no blood in urine or stool, feels it is 'stuck' in the throatOV 05/09/2020:Here for his routine aptHe feels well, he did get the EGDHe also has done the labs, does claim that his diet has worsenedHe is here for his MWV also OV 09/11/2020:Here for his routine aptHe feels wellHe did do the labs on 09/06/2020 OV 01/10/2021:Here for his routine aptHe feels wellHe did do the labs on 01/03/2021 OV 06/20/2021:Here for his routine aptHe is doing wellHe did the labs on 05/02/2021OV 11/07/2021:Here for his routine aptHe is doing wellHe did do the labs on on 2OV 02/06/2022:Here for his f/u apt, he is doing very wellHe did do the labs on 2OV 07/10/2022:Here for his f/u apt, he is doing well, he did do the labs on 07/03/2022, he would like to get viagra, also now has had a recurrence of dysphagia, intermittent, only solid foods, s/p EGD done in the past OV 12/04/2022: Here for his f/u apt, he feels well today OV 05/21/2023: Here for his routine apt, he is doing very well today OV 10/22/2023: Here for his f/u apt, and his MWV, he is doing well today OV 02/04/2024: Here for his f/u apt, he is doing well, he did stop the statin d/t being on COVID 19 medication, he also has noted the dysphagia return and wants to get a referral again to GI, he did do the labs Ervin Huertas MD [address], [address], [place], [address], [employer] [facility] [employer] [facility] 02/04/2024 10:57:53 04/07/2024 text/html . Patient is a 73-year-old diabetic male who returns for diabetic foot care. Patient states overall he is doing well denies any numbness tingling or burning in feet. Patient denies any open wounds or injury to the foot with walking. Patient states his nails are long like to have them cut. Patient states his right 5th toenail is causing him a lot of problems which he dug out part of the nail corner causes small wound which I explained to keep clean and dry if becomes infected return to office and perform daily wound care. Patient denies any other complaints. Fernando Melendez DPM [address], [address], [place], [address], [employer] [facility] [employer] 04/13/2024 18:09:40 05/05/2024 text/html Here to [place] sealsRavindra with his wifePast Hx:DMIIReviewed his social family and surgical historyHere to discuss above and also obtain labsOV 09/21/17:Here for his routine aptHe states that he is doing well at this time OV 12/16/17:Here for his routine aptHe states that he is doing well at this time, he states that he may have passed a kidney stone and is doing well at this timeNo pain, no blood in urineIs to see an eye MD for L and R eyes, L eye has had the cataract and laser surgeryOV 03/24/18:Here for his 3 months aptHe feels that he is doing well OV 06/30/18:Here to discuss his labsHe feels that he is doing well he does state that he does not take his medications 'on time' he has not taken his pravastatin as he shouldOV 01/12/19:Here for his routine aptHe states that he is doing well, went on a long road trip and feels that he did not eat healthyNo recent labs since 11/18/18 OV 04/20/19:Here for his routine aptHe is doing wellHe did do the labsOV 08/17/2019:Here for his routine aptHe feels well todayHe did do the labs on 08/11/2019 and is here to review these OV 12/28/2019:Here for his routine aptHe feels wellHe does have some tinnitus in the R ear, no ear ache of d/c from the ear, He does feel it when he scratches itHe is also having some dysphagia for solids, no weight loss, no abd pain, no blood in urine or stool, feels it is 'stuck' in the throatOV 05/09/2020:Here for his routine aptHe feels well, he did get the EGDHe also has done the labs, does claim that his diet has worsenedHe is here for his MWV also OV 09/11/2020:Here for his routine aptHe feels wellHe did do the labs on 09/06/2020 OV 01/10/2021:Here for his routine aptHe feels wellHe did do the labs on 01/03/2021 OV 06/20/2021:Here for his routine aptHe is doing wellHe did the labs on 05/02/2021OV 11/07/2021:Here for his routine aptHe is doing wellHe did do the labs on on 2OV 02/06/2022:Here for his f/u apt, he is doing very wellHe did do the labs on 2OV 07/10/2022:Here for his f/u apt, he is doing well, he did do the labs on 07/03/2022, he would like to get viagra, also now has had a recurrence of dysphagia, intermittent, only solid foods, s/p EGD done in the past OV 12/04/2022: Here for his f/u apt, he feels well today OV 05/21/2023: Here for his routine apt, he is doing very well today OV 10/22/2023: Here for his f/u apt, and his MWV, he is doing well today OV 02/04/2024: Here for his f/u apt, he is doing well, he did stop the statin d/t being on COVID 19 medication, he also has noted the dysphagia return and wants to get a referral again to GI, he did do the labs OV 05/05/2024: Here for his routine apt, he feels very well today Ervin Huertas MD [address], [address], [place], [address], [employer] 05/22/2024 20:07:38 07/21/2024 text/html . Patient is a 73-year-old male diabetic returns for diabetic foot care he denies any new complaints. Patient has elongated toenails would like to have them cut. Fernando Melendez DPM [address], [address], [place], [address], [employer] 07/25/2024 09:04:17
--- OUTSIDE RECORDS SUMMARY | 2024-08-19 08:45 | XMS_ITS | Encounter Summary ---
Author Organization [facility] Address [address] [place] [address] Care Team Providers Care Gas Maker Name Role Phone Nishant Lerma MD Primary Care Provider [phone]- [phone] Encounter Details Date Type Department Care Team (Late st Contact Info) Description 10/15/2017 Lab Requisition [facility] D[facility] [address] [place] [phone] [place] [address] Social History Tobacco Use Types Packs/Day Years Used Date Smoking Tobacco: Never Assessed Sex and Gender Information Value Date Recorded Sex Assigned at Not on file Gender Identity Not on file Sexual Orientation Not on file documented as of this encounter Plan of Treatment Not on file documented as of this encounter Procedures Procedure Name Priority Date/Time Associated Diagnosis Comments DERMATOPATHOLOGY Routine 10/14/2017 12:0 0 AM CDT documented in this encounter Results * DERMATOPATHOLOGY (10/14/2017 12:00 AM CDT) Case Report Dermatopathology Report Case: [id number] Authorizing Provider: Huseyin Mata MD Collected: 10/14/2017 12:00 AM Pathologist: Hubert Tavares MD Received: 10/15/2017 12:31 PM Specimen: Skin, left pop fossa 8 5:07 PM CDT DERMATOPATHOLOGY LABORATORY Final Diagnosis Specimen A. SKIN, left pop fossa: LENTIGINOUS MELANOCYTIC NEVUS, COMPOUND TYPE, IRRITATED (COMPOUND MELANOCYTIC NEVUS WITH ARCHITECTURAL DISORDER) (D22.72) NOT PRESENT AT SAMPLED MARGIN 8 5:07 PM CDT DERMATOPATHOLOGY LABORATORY Clinical History R/O dysplastic nevus. Check margins. 8 5:07 PM CDT DERMATOPATHOLOGY LABORATORY Gross Description Specimen A: Received is one formalin filled container labeled with the patient's name and designated left pop fossa. The specimen consists of a shave biopsy measuring [id number]. The margin is inked green. Jar 0. 8 5:07 PM CDT DERMATOPATHOLOGY LABORATORY Microscopic Description Specimen A. SKIN, left pop fossa: This is a compound nevus. There is melanin pigment in the stratum corneum. There is architectural disorder characterized by a lentiginous proliferation of melanocytes between irregular nevus nests of cells along the dermal epidermal junction. There is underlying fibroplasia of the papillary dermis. The intradermal component is bland in appearance and matures with depth. (Compound Tirso's Nevus or Compound Dysplastic Nevus) This lesion is not present at the sampled margin of the specimen. 8 5:07 PM CDT DERMATOPATHOLOGY LABORATORY Disclaimer An external and internal positive and negative controls are appropriate for the histochemical, immunohistochemical and immunofluorescence stain(s) in this case (if any), except where stated explicitly. The performance characteristics of the stain(s) cited in this report were developed and its performance characteristic determined by the Dermatopathology Laboratory at [facility]. These tests need not be, and therefore are not, approved by the [place] Food and Drug Administration. The tests are used for clinical purposes. Billing Codes Specimen Charges Stain Charges 69389 1 8 5:07 PM CDT DERMATOPATHOLOGY LABORATORY Embedded Images 8 5:07 PM CDT DERMATOPATHOLOGY LABORATORY Pathology/Cytolog y TISSUE SPECIMEN FROM SKIN / Unknown 10/14/2017 10/15/2017 12:31 PM CDT Huseyin Mata MD LAB - PATHOLOGY/CYTO LOGY ORDERABLES DERMATOPATHOLOGY LABORATORY [facility] - Department of Dermatology [address] [place] [address], [facility] [phone] documented in this encounter Visit Diagnoses Not on filedocumented in this encounter Care Teams Gas Maker Relationship Specialty Start Date End Date Nishant Lerma MD [address] [place] [address] PCP - General 03/14/08 documented as of this encounter
--- OUTSIDE RECORDS SUMMARY | 2024-08-19 08:45 | XMS_ITS | Encounter Summary ---
Author Organization [facility] Address [address] [place] [address] Care Team Providers Care Private Investigator Name Role Phone Nishant Lerma MD Primary Care Provider [phone]- [phone] Encounter Details Date Type Department Care Team (Late st Contact Info) Description 03/22/2021 Lab Requisition [facility] DermPath Lab [address] [place] [phone] Huseyin Mata [place] [address] Social History Tobacco Use Types Packs/Day Years Used Date Smoking Tobacco: Never Assessed Sex and Gender Information Value Date Recorded Sex Assigned at Not on file Gender Identity Not on file Sexual Orientation Not on file documented as of this encounter Plan of Treatment Not on file documented as of this encounter Procedures Procedure Name Priority Date/Time Associated Diagnosis Comments DERMATOPATHOLOGY Routine 03/20/2021 12:0 0 AM CDT documented in this encounter Results * DERMATOPATHOLOGY (03/20/2021 12:00 AM CDT) Case Report Dermatopathology Report Case: [id number] Authorizing Provider: Huseyin Mata MD Collected: 03/20/2021 12:00 AM Ordering Location: [facility] DermPath Lab Received: 03/22/2021 11:18 AM Pathologist: Zita Peralta MD Specimen: Skin, right lower lat back 3:42 PM CDT DERMATOPATHOLOGY LABORATORY Final Diagnosis Specimen A. 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 3:42 PM CDT DERMATOPATHOLOGY LABORATORY Gross Description Specimen A: Received is one formalin filled container labeled with the patient's name and designated right lower lat back. The specimen consists of a shave biopsy measuring [id number]. Jar 0. 3:42 PM CDT DERMATOPATHOLOGY LABORATORY Microscopic Description Specimen A. SKIN, right lower lat back: This is a compound nevus. There is architectural disorder characterized by a lentiginous proliferation of melanocytes along the dermal-epidermal junction, highlighted by MART-1/Melan-A immunohistochemical staining. There is underlying fibroplasia of the papillary dermis. The intradermal component is bland in appearance and matures with depth. Original and deeper sections were reviewed. (Compound Tirso's Nevus or Compound Dysplastic Nevus) 3:42 PM CDT DERMATOPATHOLOGY LABORATORY Disclaimer An external and internal positive and negative controls are appropriate for the histochemical, immunohistochemical and immunofluorescence stain(s) in this case (if any), except where stated explicitly. The performance characteristics of the stain(s) cited in this report were developed and its performance characteristic determined by the Dermatopathology Laboratory at [facility], directed by Dr. Shanique Tavares. These tests need not be, and therefore are not, approved by the [place] Food and Drug Administration. The tests are used for clinical purposes. Billing Codes Specimen Charges Stain Charges 28670 1 28080 1 3:42 PM CDT DERMATOPATHOLOGY LABORATORY Embedded Images 3:42 PM CDT DERMATOPATHOLOGY LABORATORY Pathology/Cytolog y TISSUE SPECIMEN FROM SKIN / Unknown 03/20/2021 03/22/2021 11:18 AM CDT Huseyin Mata MD LAB - PATHOLOGY/CYTO LOGY ORDERABLES DERMATOPATHOLOGY LABORATORY [facility] - Department of Dermatology [facility] Medicine [address] [phone] documented in this encounter Visit Diagnoses Not on filedocumented in this encounter Care Teams Private Investigator Relationship Specialty Start Date End Date Nishant Lerma MD [address] [place] [address] PCP - General 03/14/08 documented as of this encounter
--- OUTSIDE RECORDS SUMMARY | 2024-08-19 08:45 | XMS_ITS | Clinical Summary ---
Author Organization [facility] Address [address] [place] [address] Care Team Providers Care Honing Machine Operator Name Role Phone Nishant Lerma MD Primary Care Provider +1- [phone] Source Comments [facility],non-owned Affiliates and Associated Physician Practices is amultiple site organization consisting of ambulatory clinics and hospital sitesin [place], [place], [place] and [place]. This disclosure is being madepursuant to the Care Everywhere program and may not contain all information available regarding this patient. Last updated 18.[facility] [employer] Social History Tobacco Use Types Packs/Day Years Used Date Smoking Tobacco: Never Assessed Sex and Gender Information Value Date Recorded Sex Assigned at Not on file Gender Identity Not on file Sexual Orientation Not on file Plan of Treatment Health Maintenance Due Date Last Done Comments COLOGUARD (AGES 45-75) - COL ON CA SCREENING 1950 COLON MONITORING 1950 COLONOSCOPY - COLON CA SCREENING 1950 CT COLONOGRAPHY - COLON CA SCREENING 1950 Colorectal Cancer Screening 1950 FIT - COLON CA SCREENING 1950 FLEX SIG - COLON CA SCREENING 1950 LIPID TESTING 1950 MEDICARE AWV 12 MONTHS 1950 HEPATITIS C SCREENING 12/16/1969 DTAP/TDAP/TD VACCINES (1 - Tdap) 12/20/1970 PNEUMOCOCCAL VACCINE 50+ (1 of 1 - PCV) 12/20/2001 ZOSTER VACCINE (1 of 2) 12/20/2001 COVID-19 VACCINE (1 - 2023-2 5 season) 2024 INFLUENZA VACCINE (#1) 2024 DEPRESSION SCREENING 06/01/2024 Respiratory Syncytial Virus (RSV) Vaccine Pt: or over 60 yrs (1 - 1-dose 75+ series) 12/20/2026 HEPATITIS B VACCINE Aged Out No longe r eligible based on patient's age to complete this topic HIB VACCINE Aged Out No longer eligi ble based on patient's age to complete this topic HPV VACCINE Aged Out No longer eligi ble based on patient's age to complete this topic MENINGOCOCCAL (Group B) VACC INE SHARED DECISION-MAKING Aged Out No longer eligibl e based on patient's age to complete this topic MENINGOCOCCAL GROUPS A/C/Y/W VACCINE Aged Out No longer eligible b ased on patient's age to complete this topic Care Teams Honing Machine Operator Relationship Specialty Start Date End Date Nishant Lerma MD [address] [facility] [address] [facility] [address] [place] [address] PCP - General 03/14/08
--- NOTE | 2024-08-19 13:29 | REHSTMBS ---
Assessment and note entered by FELICITAS Baca Modified Barium Swallow Evaluation ICD-10 Condition Codes (ST) Dysphagia, unspecified R13.1 Feeding Type Recommended Oral ST Clinical Summary The above pleasant and cooperative pt was seen for an outpatient modified barium swallow. He was alert, oriented, and able to follow commands. He is currently on a regular diet and reports difficulty in that solids and pills get stuck in his throat . He states it can occasionally happen with liquids as well. He reported one instance where his performed the Heimlich maneuver on him. Pt stated he has had his esophagus dilated multiple times but after a month or less he's usually having difficulty again. The patient was viewed in a lateral position when presented with 5cc of thin liquid barium via a spoon, pudding consistency barium via a spoon, a cracker coated with barium pudding via spoon, and an uncontrolled thin liquid barium bolus. This was presented via a cup and a straw. Pt was also tested with a barium pill. Upon fluoro, bony spurs were noted at C3/C4. Oral preparatory and oral phase symptoms: none. Pharyngeal phase symptoms exhibited: vallecular residual ranging from mild to moderate degree which appeared to be due to incomplete/reduced epiglottic inversion possibly due to the bony protrusions. Laryngeal penetration occurred during the swallows of thin liquids, but it was shallow and cleared with aspiration risk. The residual was cleared with multiple dry swallows. Esophageal stage symptoms: none. No aspiration occurred. Overall, the patient presents with functional swallow ability however, the anterior bony protuberances may be impeding the full epiglottic inversion causing vallecular residue. Trace laryngeal penetration was exhibited but no aspiration occurred. No esophageal backflow was noted.
== END 2024-08-19 08:23 | disposition home or self-care (01) ==
PROVIDERS: Visit Provider Nurse Practitioner Family
DX: R13.13 Dysphagia, pharyngeal phase (principal); M25.78 Osteophyte, vertebrae
CPT/HCPCS: 92611